=== PATIENT | female | born 2000 | race Caucasian/White ===

== ENCOUNTER 2022-09-21 06:30 | Inpatient (IN) ==
[2022-09-21] MEDS ORDERED: PITOCIN ONE (06:37)
[2022-09-21] MEDS ORDERED: D5 1/2 NS 1,000 ML 1,000 ML IV ONE (06:37)
[2022-09-21] MEDS ORDERED: BETADINE SOLN ONE (06:38)
[2022-09-21] MEDS ORDERED: D5 LR + PITOCIN 10 UNITS/L 10 UNITS/1,000 ML BAG IV ONE (06:38)
[2022-09-21] MEDS ORDERED: D5 1/2 NS 1,000 mL + PITOCIN 20 UNITS/L IV 20 UNITS/1,000 ML BAG IV ONE (06:38)
[2022-09-21] MEDS: D5 1/2 NS 1,000 ML 1,000 ML IV SCH ×2 (07:00→17:52)
--- NOTE | 2022-09-21 07:13 | DR.OB ---
OB Quick Note - Assessment/Plan Assessment/Plan: L&D 09/21/22 at 7:05am S-No complaint. O-Afebrile,VSS HON=[id number] with good LTV, +accel, no decel. CTX=mild uterine irritability CVX=3cm/75%/0/VTX AROM with clear fluid. IUPC and FSE placed. A-IUP at 39 3/7 weeks for induction P-Begin pitocin induction Anticipate
[2022-09-21] MEDS ORDERED: NUBAIN INJ 20 MG AMP IVP PRN (07:23)
[2022-09-21] MEDS ORDERED: REGLAN INJ 10 MG VIAL IVP PRN (07:23)
[2022-09-21] MEDS ORDERED: MORPHINE SULFATE INJ 2 MG INJ IVP PRN (07:23)
[2022-09-21] MEDS ORDERED: PITOCIN IVP ONE (07:23)
[2022-09-21] MEDS ORDERED: D5 LR + PITOCIN 10 UNITS/L 10 UNITS/1,000 ML BAG IV PRN (07:23)
[2022-09-21 07:36] LABS: BILIRUBIN,URINE NEGATIVE (NEGATIVE); BLOOD/HEMOGLOBIN,URINE 1+ (NEGATIVE); GLUCOSE, URINE NEGATIVE (NEGATIVE); KETONES,URINE NEGATIVE (NEGATIVE); LEUKOCYTE ESTERASE ,URINE 3+ (NEGATIVE); NITRITES,URINE NEGATIVE (NEGATIVE); PROTEIN,URINE 1+ (NEGATIVE); UROBILINOGEN,URINE NORMAL (NORMAL)
[2022-09-21 07:45] LABS: APPEARANCE,URINE HAZY (CLEAR); COLOR,URINE YELLOW (YELLOW)
[2022-09-21 07:46] LABS: BACTERIA,URINE 2+ /HPF (NEGATIVE); SQUAMOUS EPITHELIAL CELL,UR FEW /HPF (NEGATIVE)
[2022-09-21 07:54] LABS: BASOPHILS % (AUTO) 0.4 % (0.2-1.0); EOSINOPHILS # (AUTO) 0.1 x10^3/uL (0.0-0.2); EOSINOPHILS % (AUTO) 1.1 % (0.9-2.9); HEMOGLOBIN 11.2 g/dL (12.0-16.0); LYMPHOCYTES # (AUTO) 2.4 X10^3/uL (1.3-2.9); LYMPHOCYTES % (AUTO) 20.6 % (21.0-51.0); MEAN CORPUSCULAR HEMOGLOBIN 29.7 pg (27.0-34.0); MEAN CORPUSCULAR VOLUME 87.4 fL (80.0-100.0); MEAN PLATELET VOLUME 8.1 fL (7.4-11.0); MONOCYTES # (AUTO) 0.9 x10^3/uL (0.3-0.8); NEUTROPHILS % (AUTO) 69.9 % (42.0-75.0); RED BLOOD COUNT 3.77 X10^6/uL (3.5-5.4); RED CELL DISTRIBUTION WIDTH 12.9 % (11.6-16.5); WHITE BLOOD COUNT 11.5 X10^3/uL (3.6-10.0)
[2022-09-21 08:10] LABS: ALANINE AMINOTRANSFERASE 8 Units/L (12-78); ALBUMIN 2.2 g/dL (3.4-5.0); ALKALINE PHOSPHATASE 198 Units/L (46-116); ASPARTATE AMINO TRANSFERASE 21 Units/L (15-37); BLOOD UREA NITROGEN 5 mg/dL (7-18); CALCIUM 8.2 mg/dL (8.5-10.1); CARBON DIOXIDE 25.6 mmol/L (21-32); CHLORIDE 105 mmol/L (98-107); COR CA(FOR HYPOALB) 9.6 mg/dL (8.5-10.1); CREATININE 0.43 mg/dL (0.55-1.02); SODIUM 137 mmol/L (136-145); TOTAL PROTEIN 5.8 g/dL (6.4-8.2); eGFR NON BLACK RACES > 60 (>60)
[2022-09-21] MEDS ORDERED: STADOL INJ IVP PRN (08:34)
[2022-09-21] MEDS ORDERED: LR 1,000 ML IV 1,000 ML IV ONE (09:15)
[2022-09-21] MEDS ORDERED: NAROPIN EPIDURAL 0.2% 100 ML ONE (09:16)
[2022-09-21] MEDS ORDERED: FENTANYL VIAL INJ 100 mcg ONE (09:16)
--- NOTE | 2022-09-21 12:03 | DR.OB ---
OB Quick Note - Assessment/Plan Assessment/Plan: L&D 09/21/22 at 11:55am Pitocin=14mu/min. S-No complaint. s/p epidural. O-Afebrile,VSS YQJ=[id number] with good LTV, +accel., no decel. CTX=q 1 1/2 to 2 min., about 65-75mmHg CVX=5cm/75%/0 A-IUP at 39 3/7 weeks for induction P-Cont. pitocin induction Anticipate
[2022-09-21] MEDS ORDERED: MOTRIN TAB 800 MG PO PRN (14:23)
[2022-09-21] MEDS: D5 1/2 NS 1,000 ML 1,000 ML with PITOCIN 20 UNITS IV SCH ×4 (15:00→23:00)
--- NOTE | 2022-09-21 15:01 | DR.OB ---
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 Head delivered over intact perineum (). Nose and mouth bulb suctioned. No nuchal cord. Body delivered over intact perineum. Cord clamped x 2 and cut. handed to attendant. Cord sent for gases. Placenta delivered spontaneously / intact / 3 vessel cord. No CVX / vaginal / perineal tears. Viable male infant, VTX/OA, wt=6'9" and 9/9, stable to NBN. Mother stable to RR. ICI=[id number].
[2022-09-21] MEDS ORDERED: DERMOPLAST PAIN RELIEF SPRAY TOP PRN (15:29)
[2022-09-21] MEDS ORDERED: ADACEL or BOOSTRIX TDaP VACCINE IM ONE (15:29)
[2022-09-21] MEDS ORDERED: MILK OF MAGNESIA PO PRN (15:29)
[2022-09-21] MEDS ORDERED: VENTOLIN or PROAIR HFA IN PRN (15:29)
[2022-09-21] MEDS ORDERED: AMBIEN PO PRN (15:29)
[2022-09-21] MEDS ORDERED: BENADRYL INJ 50 MG VIAL IVP ONE (16:39)
[2022-09-21] MEDS ORDERED: PROVENTIL NEB TX 0.083% 2.5MG/ 3ML NEB PRN (17:47)
[2022-09-22] MEDS: D5 1/2 NS 1,000 ML 1,000 ML with PITOCIN 20 UNITS IV SCH ×4 (06:09→14:00)
[2022-09-22] MEDS ORDERED: DEPO-PROVERA CONTRACEPTIVE INJ IM ONE (07:16)
[2022-09-22] MEDS ORDERED: PRENATAL PLUS PO SCH (09:00)
[2022-09-22] MEDS ORDERED: ADACEL or BOOSTRIX TDaP VACCINE IM ONE (10:36)
[2022-09-22 13:45] VITALS: BP 118/71
== END 2022-09-22 16:15 | disposition home or self-care (01) | DRG 807 ==
LOC: LD 06:30 → MED/SURG 15:44
PROVIDERS: ADMIT Specialist; ATTEND Specialist
DX: Z37.0 Single live birth; J45.998 Other asthma; Z87.898 Personal history of other specified conditions; O99.513 Diseases of the respiratory system complicating pregnancy, third trimester; Z3A.39 39 weeks gestation of pregnancy; O34.40 Maternal care for other abnormalities of cervix, unspecified trimester